=== PATIENT | female | born 1970 | race Caucasian/White ===

== ENCOUNTER 2016-05-14 20:51 | Emergency (ER) | payer SELFPAY ==
[~2016-05-14 20:51] MED LIST: ASPIR-LOW81 MG PO; MULTI VITAMIN1 EACH PO; PERCOCET 5 DPS1 TAB PO; XANAX DPS0.25 MG PO
--- NOTE | 2016-05-15 10:18 | NUR ---
Received SAD person referral. Pt was EPC'd to [facility] in [place].
--- NOTE | 2016-05-26 21:14 | ER ---
ADMIT: 05/14/2016 RM/LOC: ER [facility] MR#: [id number] [facility] [address] [place], [place] [address] [address] [place] [address] Emergency Room Report SEX: F AGE: 45 : 1970 DATE: 05/14/2016 CHIEF COMPLAINT: Suicidal ideation. HISTORY OF PRESENT ILLNESS: This is a 45-year-old female, her friend had called the police because there was a text sent that was suspicious for her being suicidal. Police brought her into the emergency room. EPC labs were done. Dr. Figueroa has accepted. CLINICAL IMPRESSION: Suicidal ideation. LABS: CMP was normal except for glucose of 150. She has an A1c of 7.1. EtOH is none. Acetaminophen is less than 2. Free T4 and TSH are normal. Salicylates under 1.7, and test is negative. CBC is normal. PLAN: Again, Dr. Figueroa has accepted the patient will be transferred by the police to [facility]. GREGOR Randall / Melvin Connolly MD / tara JOB #: [id number] CC: Melvin Connolly MD, Attending Physician Alexandra Lanier MD, Family Physician
== END 2016-05-14 22:56 | disposition short-term general hospital (02) ==
LOC: ER 20:51
DX: R45.851 Suicidal ideations (principal); E11.9 Type 2 diabetes mellitus without complications; Z88.5 Allergy status to narcotic agent; Z88.1 Allergy status to other antibiotic agents

== ENCOUNTER 2016-06-23 07:29 | Day surgery (SDC) | payer MEDICAID ==
[~2016-06-23] VITALS: Ht 162.6 cm; Wt 80.4 kg
== END 2016-06-23 12:28 | disposition home or self-care (01) ==
LOC: RAD.S 07:29 → EDSTATUS 09:00 → RAD.S 09:00
PROC: 0DBT3ZX (ICD-10-PCS; principal; 2016-06-23)
DX: C48.1 Malignant neoplasm of specified parts of peritoneum (principal); C49.3 Malignant neoplasm of connective and soft tissue of thorax; J45.909 Unspecified asthma, uncomplicated; E11.9 Type 2 diabetes mellitus without complications; F31.9 Bipolar disorder, unspecified; Z98.890 Other specified postprocedural states; Z98.51 Tubal ligation status; Z90.710 Acquired absence of both cervix and uterus; Z79.899 Other long term (current) drug therapy; Z88.6 Allergy status to analgesic agent

== ENCOUNTER 2016-07-08 07:52 | Day surgery (SDC) | payer MEDICAID | END 2016-07-08 15:56 | disposition home or self-care (01) | DX: C48.1 Malignant neoplasm of specified parts of peritoneum (principal); C49.3 Malignant neoplasm of connective and soft tissue of thorax; E11.9 Type 2 diabetes mellitus without complications; J45.909 Unspecified asthma, uncomplicated; Z88.6 Allergy status to analgesic agent; Z88.8 Allergy status to other drugs, medicaments and biological substances; Z79.899 Other long term (current) drug therapy; Z90.710 Acquired absence of both cervix and uterus; Z98.890 Other specified postprocedural states ==

== ENCOUNTER 2016-08-01 09:21 | Emergency (ER) | payer MEDICAID ==
--- NOTE | 2016-08-07 15:59 | ER ---
ADMIT: 08/01/2016 RM/LOC: ER [facility] MR#: [id number] [id number] [address] [address] [address] Emergency Room Report SEX: F AGE: 45 : 1970 DATE: 08/01/2016 See T-sheet for complete H and P ADDENDUM: A 45-year-old female, comes in with some complaints of some mild shortness of breath that has been going on since last night. She does have a recent diagnosis of mesothelioma, which was found in her abdomen. With this shortness of breath and cancer diagnosis, I am concerned the possibility of PE, so we did get a CT angio, which shows no evidence of PE. There is a right lower lobe posterior pleural calcification and thickening, not changed. The patient is discharged home in stable condition with diagnoses of shortness of breath and seasonal allergies. She is to follow up with her regular physicians as scheduled. Loc Hickman MD/ tara JOB #: [id number] CC: Loc Hickman MD, Attending Physician Morgan Dalton MD, Family Physician
== END 2016-08-01 11:54 | disposition home or self-care (01) ==
LOC: ER 09:21
DX: J30.2 Other seasonal allergic rhinitis (principal); R06.02 Shortness of breath; E11.9 Type 2 diabetes mellitus without complications; J45.909 Unspecified asthma, uncomplicated; Z90.49 Acquired absence of other specified parts of digestive tract; Z90.710 Acquired absence of both cervix and uterus; Z90.89 Acquired absence of other organs; Z98.890 Other specified postprocedural states; Z79.84 Long term (current) use of oral hypoglycemic drugs; Z79.899 Other long term (current) drug therapy; Z88.2 Allergy status to sulfonamides; Z88.6 Allergy status to analgesic agent; Z88.8 Allergy status to other drugs, medicaments and biological substances